=== PATIENT | male | born 1990 | race Caucasian/White ===

== ENCOUNTER 2017-11-30 20:27 | Emergency (ER) | payer SELFPAY ==
[~2017-11-30] VITALS: Ht 170.2 cm; Wt 90.7 kg
[2017-11-30 20:36] VITALS: BP 136/84
--- NOTE | 2017-11-30 20:50 | NUR ---
WALI MONTANO AT BEDSIDE FOR EVAL.
[2017-11-30] MEDS ORDERED: IBUPROFEN 600 MG TABLET PO ONE ×2 (21:15→21:30)
== END 2017-11-30 21:24 | disposition home or self-care (01) ==
LOC: ER 20:27
DX: S46.911A Strain of unspecified muscle, fascia and tendon at shoulder and upper arm level, right arm, initial encounter (principal); S16.1XXA Strain of muscle, fascia and tendon at neck level, initial encounter; S39.012A Strain of muscle, fascia and tendon of lower back, initial encounter; V47.5XXA Car driver injured in collision with fixed or stationary object in traffic accident, initial encounter; Y93.89 Activity, other specified; Y92.410 Unspecified street and highway as the place of occurrence of the external cause; Y99.8 Other external cause status
CPT/HCPCS: 99282; A4606; Z7610